=== PATIENT | female | born 1960 | race Caucasian/White ===

== ENCOUNTER 2025-08-16 16:30 | Inpatient (IN) | payer MEDICARE ==
[~2025-08-16] VITALS: Ht 167.6 cm; Wt 75.7 kg
[2025-08-16 17:00] VITALS: PULSE 93; RESP 18; TEMP 99.1
[2025-08-16] MEDS ORDERED: SODIUM CHLORIDE FLUSH 10 ML SYR IV PRN (17:00)
[2025-08-16 17:20] LABS: BASOPHILS % 0.7 % (0.0-1.0); EOSINOPHILS % 1.1 % (0.0-6.0); LYMPHOCYTES % 20.0 % (18.0-39.1); MONOCYTES % 17.9 % (4.4-11.3); NEUTROPHILS % 59.9 % (38.7-80.0); RED CELL DISTRIBUTION WIDTH 19.1 % (11.7-14.4)
[2025-08-16] MEDS ORDERED: LANTUS 3ML100 UNITS/ SQ (17:20)
[2025-08-16] MEDS ORDERED: LACTULOSE10 GM/15 M PO (17:20)
[2025-08-16] MEDS ORDERED: LEVOTHYROXINE50 MCG PO (17:20)
[2025-08-16] MEDS ORDERED: TRADJENTA5 MG PO (17:20)
[2025-08-16] MEDS ORDERED: BRILINTA90 MG PO (17:20)
[2025-08-16] MEDS ORDERED: ALENDRONATE SOD70 MG PO (17:20)
[2025-08-16] MEDS ORDERED: METFORMIN HCL500 MG PO (17:20)
[2025-08-16] MEDS ORDERED: ATORVASTATIN CA80 MG PO (17:20)
[2025-08-16] MEDS ORDERED: XIFAXAN550 MG PO (17:20)
[2025-08-16] MEDS ORDERED: GABAPENTIN300 MG PO (17:20)
[2025-08-16] MEDS ORDERED: NOVOLOG100 UNITS1 (17:20)
[2025-08-16] MEDS ORDERED: PANTOPRAZOLE SO40 MG PO (17:20)
[2025-08-16] MEDS ORDERED: FLUTICASONE PRO16 GM INH (17:20)
[2025-08-16] MEDS ORDERED: METOPROLOL SUCC25 MG PO (17:20)
[2025-08-16] MEDS ORDERED: VITMIN D PO (17:21)
[2025-08-16] MEDS ORDERED: MULTI-VITAMIN1 EACH PO (17:21)
[2025-08-16] MEDS ORDERED: ASCORBIC ACID PO (17:21)
[2025-08-16 17:23] LABS: LEUKOCYTE ESTERASE ,URINE NEGATIVE (NEGATIVE); PROTEIN,URINE DIPSTICK TRACE (NEGATIVE); URINE UROBILINOGEN 0.2 mg/dL (0.2 - 1)
[2025-08-16 17:33] LABS: EPITHELIAL CELLS,URINE MODERATE /LPF
[2025-08-16] MEDS: TRAMADOL HCL 50 MG TAB PO ONE (17:33)
[2025-08-16] MEDS: SODIUM CHLORIDE 0.9% 1000ML 1,000 ML IV ONE (17:37)
[2025-08-16 17:43] LABS: EST GLOMERULAR FILTRATION RATE 52.0 ML/MIN (>=60)
[2025-08-16 17:54] LABS: INR 1.15
[2025-08-16] MEDS ORDERED: ONDANSETRON HCL INJ 2MG/ML 2ML 2 MG/ML VIAL IV PRN (18:30)
[2025-08-16 20:00] VITALS: BP 122/60; PULSE 84; RESP 18; TEMP 98.1; O2SAT 100
[2025-08-16 21:06] VITALS: BP 122/60; PULSE 84; RESP 18; TEMP 98.1; O2SAT 99
[2025-08-16] MEDS: SODIUM CHLORIDE 0.9% 1000ML 1,000 ML IV SCH (21:24)
[2025-08-16] MEDS: GABAPENTIN 300 MG CAP PO ONE (23:22)
[2025-08-16] MEDS: DEXTROSE 5%/0.9% SOD CHL 1,000 ML IV SCH (23:22)
[2025-08-16] MEDS: GUAIFENESIN/CODEINE 5 ML LIQD PO PRN (23:22)
[2025-08-16] MEDS ORDERED: HYDRALAZINE HCL 20 MG/ML VIAL IV PRN (23:45)
[2025-08-16] MEDS ORDERED: DIPHENHYDRAMINE HCL 25 MG CAP PO PRN (23:45)
[2025-08-16] MEDS ORDERED: LIDOCAINE 4% PATCH TP PRN (23:45)
[2025-08-16] MEDS ORDERED: ALBUTEROL/IPRATROPIUM 3 ML NEB NEB PRN (23:45)
[2025-08-16] MEDS ORDERED: DEXTROSE 50% SYRINGE 50 ML IV PRN (23:45)
[2025-08-16] MEDS ORDERED: POTASSIUM CHLORIDE 20 MEQ TAB CR PO PRN (23:45)
[2025-08-16] MEDS ORDERED: DOCUSATE SODIUM 100 MG CAP PO PRN (23:45)
[2025-08-16] MEDS ORDERED: ACETAMINOPHEN 325 MG TAB PO PRN (23:45)
[2025-08-16] MEDS ORDERED: SIMETHICONE 80 MG CHEW PO PRN (23:45)
[2025-08-17] VITALS (10 sets, daily range): BP systolic 123–145; BP diastolic 58–78; PULSE 65–84; RESP 17–20; TEMP 97.3–98.6; O2SAT 96–100
[2025-08-17] MEDS: SODIUM BICARBONATE 650 MG TAB PO SCH (00:31)
[2025-08-17 00:32] LABS: BASOPHILS % 0.9 % (0.0-1.0); EOSINOPHILS % 1.9 % (0.0-6.0); LYMPHOCYTES % 30.2 % (18.0-39.1); MONOCYTES % 19.7 % (4.4-11.3); NEUTROPHILS % 47.1 % (38.7-80.0); RED CELL DISTRIBUTION WIDTH 18.7 % (11.7-14.4)
[2025-08-17 06:53] LABS: BASOPHILS % 0.9 % (0.0-1.0); EOSINOPHILS % 3.0 % (0.0-6.0); LYMPHOCYTES % 36.8 % (18.0-39.1); MONOCYTES % 20.9 % (4.4-11.3); NEUTROPHILS % 38.2 % (38.7-80.0); RED CELL DISTRIBUTION WIDTH 18.8 % (11.7-14.4)
[2025-08-17 07:41] LABS: EST GLOMERULAR FILTRATION RATE 68.0 ML/MIN (>=60)
[2025-08-17 08:28] LABS: EOSINOPHILS % (MANUAL) 3 % (0-7); LYMPHOCYTES % (MANUAL) 27 % (19-48); MONOCYTES % (MANUAL) 19 % (3.4-9.0); NEUTROPHILS % (MANUAL) 51 % (40-74); PLATELET ESTIMATE MODERATELY DECREASED; PLATELET MORPHOLOGY COMMENT NORMAL
[2025-08-17] MEDS ORDERED: SODIUM CHLORIDE 0.9% 100 ML ONE (09:52)
[2025-08-17] MEDS ORDERED: IOPAMIDOL 370 MG/ML 100 ML INFUS..BTL INJ ONE (09:52)
[2025-08-17] MEDS: BENZONATATE 100 MG CAP PO PRN (10:46)
[2025-08-17] MEDS: TRAMADOL HCL 50 MG TAB PO PRN (10:46)
[2025-08-17] MEDS: METOPROLOL SUCCINATE 25 MG TAB XL PO SCH (12:20)
[2025-08-17] MEDS: MAGNESIUM SULFATE 2GM/50ML 50 ML IV ONE ×2 (12:20→17:10)
[2025-08-17] MEDS: LACTULOSE SYRUP 20 GM/30 ML UDC PO SCH (17:00)
[2025-08-17] MEDS: RIFAXIMIN 550 MG TABLET PO SCH (17:03)
[2025-08-17] MEDS ORDERED: DEXTROSE 50% SYRINGE 50 ML IV PRN ×2 (20:45→21:45)
[2025-08-17] MEDS: GABAPENTIN 300 MG CAP PO SCH (21:34)
[2025-08-17] MEDS: MELATONIN 5 MG TABLET PO PRN (21:34)
[2025-08-17] MEDS: INSULIN LISPRO 100 UNIT/1 ML 3ML VIAL SQ SCH (22:00)
[2025-08-17] MEDS: CARVEDILOL 12.5 MG TAB PO STA (23:25)
[2025-08-18] VITALS (10 sets, daily range): BP systolic 111–133; BP diastolic 50–66; PULSE 62–78; RESP 17–20; TEMP 97.5–97.9; O2SAT 95–100
[2025-08-18 00:30] LABS: % IRON SATURATION 20 % (15-50)
[2025-08-18] MEDS: LEVOTHYROXINE SODIUM 50 MCG TAB PO SCH (05:34)
[2025-08-18 06:07] LABS: BASOPHILS % 1.5 % (0.0-1.0); EOSINOPHILS % 3.8 % (0.0-6.0); LYMPHOCYTES % 21.2 % (18.0-39.1); MONOCYTES % 16.5 % (4.4-11.3); NEUTROPHILS % 56.7 % (38.7-80.0); RED CELL DISTRIBUTION WIDTH 18.6 % (11.7-14.4)
[2025-08-18 06:33] LABS: EST GLOMERULAR FILTRATION RATE 76.0 ML/MIN (>=60); PHOSPHORUS 3.2 MG/DL (2.3-4.7)
[2025-08-18] MEDS ORDERED: CARVEDILOL 12.5 MG TAB PO SCH (09:00)
[2025-08-18] MEDS: METOPROLOL SUCCINATE 25 MG TAB XL PO SCH (09:22)
[2025-08-18] MEDS: ATORVASTATIN 40 MG TAB PO SCH (09:25)
[2025-08-18] MEDS: INSULIN LISPRO 100 UNIT/1 ML 3ML VIAL SQ SCH (09:29)
[2025-08-18] MEDS ORDERED: NON-FORMULARY MEDICATION (Insulin Glargine (Lantus 3ML Pen) 20 UNIT) SQ SCH (21:00)
[2025-08-19] VITALS (8 sets, daily range): BP systolic 120–166; BP diastolic 51–70; PULSE 62–77; RESP 16–20; TEMP 97.7–98.3; O2SAT 97–100
[2025-08-19] MEDS: DEXTROSE 5%/0.9% SOD CHL 1,000 ML IV SCH (00:21)
[2025-08-19] MEDS ORDERED: LIDOCAINE HCL 2% LOCAL INJ 5 ML SDV VIAL INJ ONE (15:31)
[2025-08-19] MEDS ORDERED: PROPOFOL IV EMULSION 10 MG/ML 20 ML VIAL ONE (15:31)
[2025-08-20 05:00] VITALS: BP 90/73; PULSE 70; RESP 15
[2025-08-20 06:35] LABS: HEPATITIS B CORE IGM (P) Negative; HEPATITIS B SURFACE AG (P) Negative
[2025-08-20 06:36] LABS: HEPATITIS A ANTIBODY IGM (P) Negative
[2025-08-20 07:50] VITALS: PULSE 72; RESP 18; O2SAT 98
[2025-08-20 08:23] LABS: BASOPHILS % 1.1 % (0.0-1.0); EOSINOPHILS % 3.1 % (0.0-6.0); LYMPHOCYTES % 32.0 % (18.0-39.1); MONOCYTES % 18.1 % (4.4-11.3); NEUTROPHILS % 45.5 % (38.7-80.0); RED CELL DISTRIBUTION WIDTH 18.8 % (11.7-14.4)
[2025-08-20 08:33] VITALS: BP 90/73; PULSE 72; RESP 18; TEMP 97.7; O2SAT 98
[2025-08-20 08:40] VITALS: BP 149/62; PULSE 72; RESP 18; TEMP 98.5; O2SAT 99
[2025-08-20 08:54] LABS: EST GLOMERULAR FILTRATION RATE 66.0 ML/MIN (>=60)
[2025-08-20 12:55] VITALS: BP 169/74; PULSE 75; RESP 18; TEMP 98; O2SAT 100
[2025-08-20] MEDS: ASPIRIN 81 MG ENTERIC COATED PO STA (15:41)
[2025-08-20] MEDS: CLOPIDOGREL BISULFATE 75 MG TAB PO ONE (15:41)
== END 2025-08-20 15:55 | disposition home or self-care (01) | DRG 378 ==
LOC: ER 16:42 → ERHOLD 18:27 → MED/SURG2 20:26 → OBSVTOIN 23:45
PROVIDERS: ADMIT Internal Medicine; ATTEND Internal Medicine
PROC: 0DB78ZZ Excision of Stomach, Pylorus, Via Natural or Artificial Opening Endoscopic (ICD-10-PCS; 2025-08-19)
PROC: 0DB68ZZ Excision of Stomach, Via Natural or Artificial Opening Endoscopic (ICD-10-PCS; principal; 2025-08-19 15:55)
DX: K29.71 Gastritis, unspecified, with bleeding (principal); K76.6 Portal hypertension; N39.0 Urinary tract infection, site not specified; I85.10 Secondary esophageal varices without bleeding; K70.30 Alcoholic cirrhosis of liver without ascites; D64.9 Anemia, unspecified; E11.9 Type 2 diabetes mellitus without complications; K31.89 Other diseases of stomach and duodenum; E83.42 Hypomagnesemia; D69.59 Other secondary thrombocytopenia; I25.10 Atherosclerotic heart disease of native coronary artery without angina pectoris; Z95.5 Presence of coronary angioplasty implant and graft; Z79.02 Long term (current) use of antithrombotics/antiplatelets; Z79.82 Long term (current) use of aspirin; Z90.49 Acquired absence of other specified parts of digestive tract; Z95.3 Presence of xenogenic heart valve; Z95.820 Peripheral vascular angioplasty status with implants and grafts; Z91.040 Latex allergy status; Z87.891 Personal history of nicotine dependence
CPT/HCPCS: 36415; 43239; 74174; 76705; 80048; 80053; 81001; 82140; 82607; 82746; 82948; 83036; 83540; 83735; 84100; 84439; 84443; 84466; 85025; 85045; 85610; 85730; 86850; 86900; 88305; 88342; 93005; 93306; 94799; 99252; 99284; J0696; J2003; J2470; J3475; J7030; J7042; J7050; Q9967